=== PATIENT | female | born 1990 ===

== ENCOUNTER 2017-03-17 11:45 | Day surgery (SDC) | payer BC ==
[~2017-03-17 11:45] MED LIST: IOPIDINE OD ONE; IOPIDINE ONE; MYDRIACYL OD ONE; MYDRIACYL ONE; NEOFRIN OD ONE; NEOFRIN ONE
[2017-03-17] MEDS ORDERED: MYDRIACYL OD ONE (12:08)
[2017-03-17] MEDS ORDERED: IOPIDINE OD ONE (12:08)
[2017-03-17] MEDS ORDERED: NEOFRIN OD ONE (12:08)
[2017-03-17 12:20] VITALS: BP 110/60
== END 2017-03-17 11:46 | disposition home or self-care (01) ==
LOC: OR 11:45
PROVIDERS: ATTEND Specialist
DX: H26.491 Other secondary cataract, right eye (principal)